=== PATIENT | female | born 1950 | race Caucasian/White ===

== ENCOUNTER 2020-06-19 08:29 | Outpatient (CLI) | payer BC | END 2020-06-19 08:30 | disposition home or self-care (01) | LOC: BICMAMMO 08:29 | PROVIDERS: ATTEND Family Medicine | DX: Z12.31 Encounter for screening mammogram for malignant neoplasm of breast (principal); Z13.820 Encounter for screening for osteoporosis; Z80.3 Family history of malignant neoplasm of breast | CPT/HCPCS: 77063; 77067; 77080 ==

== ENCOUNTER 2022-07-09 11:38 | Outpatient (CLI) | payer MEDICARE, BC | END 2022-07-09 11:39 | disposition home or self-care (01) | LOC: BICMAMMO 11:38 | PROVIDERS: ATTEND Family Medicine | DX: Z12.31 Encounter for screening mammogram for malignant neoplasm of breast (principal); Z80.3 Family history of malignant neoplasm of breast | CPT/HCPCS: 77063; 77067 ==

== ENCOUNTER 2022-11-09 15:11 | Outpatient (CLI) | payer MEDICARE, BC | END 2022-11-09 15:12 | disposition home or self-care (01) | LOC: BICMAMMO 15:11 | PROVIDERS: ATTEND Family Medicine | DX: Z13.820 Encounter for screening for osteoporosis (principal); M85.89 Other specified disorders of bone density and structure, multiple sites; N95.8 Other specified menopausal and perimenopausal disorders | CPT/HCPCS: 77080 ==

== ENCOUNTER 2024-01-12 15:07 | Outpatient (CLI) | payer MEDICARE | END 2024-01-12 15:08 | disposition home or self-care (01) | LOC: SCSRAD 15:07 | PROVIDERS: ATTEND Family Medicine | DX: M76.62 Achilles tendinitis, left leg (principal); M25.572 Pain in left ankle and joints of left foot ==

== ENCOUNTER 2024-02-22 13:40 | Outpatient (CLI) | payer MEDICARE | END 2024-02-22 13:41 | disposition home or self-care (01) | LOC: SCSRAD 13:40 | PROVIDERS: ATTEND Family Medicine | DX: M79.641 Pain in right hand (principal); M19.041 Primary osteoarthritis, right hand ==